=== PATIENT | female | born 1955 | race Caucasian/White ===

== ENCOUNTER 2020-05-05 15:08 | Outpatient (REF) | payer OTHER, SELFPAY ==
--- NOTE | 2020-05-05 13:15 | PAPFT_PTH ---
PATIENT: Elissa Hicks LOC: [facility] U#:[id number] AGE/SX: 64/F ROOM: RE05/05/[address]: KRISTIAN Gutierrez : 1955 BED: DIS: 05/05/2020 SPEC #: [id number] RECD: 05/05/20 18:11 STATUS: GEOVANI REQ #: [id number] SUE: 05/05/20 13:[address]: Aviva Pope DEPT: [facility] Cytology RECD BY: Jazmyne Tavera ENTERED: 05/05/20 18:12 SP TYPE: PAPFT NARINDER DR: Surjit Vidal Tissues: 1 - CX/ENDOCX FOR PAP SMEARS Procedures: PAP THIN PREP/[facility] Screening HPV DNA PROBE Comments: [id number]
== END 2020-05-05 15:28 ==
LOC: LBN 15:08
PROVIDERS: Visit Provider Nurse Practitioner Family
DX: Z12.4 Encounter for screening for malignant neoplasm of cervix (principal); Z11.51 Encounter for screening for human papillomavirus (HPV)
CPT/HCPCS: 88142; 87624